=== PATIENT | male | born 1985 | race Caucasian/White ===

== ENCOUNTER 2020-07-30 02:15 | Inpatient (IN) | payer MEDICARE, MEDICAID ==
[2020-07-30] MEDS ORDERED: Succinylcholine 200 MG/10 ml SYRINGE FS ONE (02:30)
[2020-07-30 02:39] LABS: Hemoglobin 16.5 g/dL (14.0-18.0); Mean Corpuscular HGB CONC 33.8 g/dL (32.0-36.0); Mean Corpuscular Hemoglobin 33.2 pg (27.0-31.0); Mean Corpuscular Volume 98.2 fL (78.0-98.0); Mean Platelet Volume 8.2 fL (7.4-10.4); Platelet Count 260 thou/uL (130-400); RBC Distribution Width 11.9 % (11.5-14.5); Red Blood Cell (RBC) Count 4.96 mill/uL (4.70-6.10); White Blood Cell (WBC) Count 10.6 thou/uL (4.8-10.8)
[2020-07-30] MEDS ORDERED: Propofol 1,000 MG/100 ML VIAL IV ONE (02:41)
[2020-07-30] MEDS ORDERED: Rocuronium Bromide 10 MG/ML (10ML VIAL) ONE (02:48)
[2020-07-30 02:58] LABS: Band 1 % (5-11); Eosinophils 2 % (0-10); Lymphocytes 57 % (21-51); MDiff Complete? YES; Monocytes 3 % (0-10); Neutrophil 35 % (42-75); Platelet Morphology Comment Appears Adequate; Reactive Lymphocytes 1 % (0-10)
[2020-07-30 03:07] LABS: Actual Bicarbonate (HCO3a) 17.3 mEq/L (22-28); Analyzer IN Cardio ER; Base Excess (BEa) -9.7 mEq/L (-2.0 to +3.0); CO2 Tension 41.7 mmHg (35.0-45.0); Hemoglobin (Hb) 17.7 g/dL (14.0-18.0); O2 Tension (PaO2), arterial 247.9 mmHg (80.0-100.0)
[2020-07-30 03:08] LABS: pH, Arterial 7.24 (7.35-7.45)
[2020-07-30 03:08] LABS: ALT (SGPT) 48 U/L (8-55); AST (SGOT) 37 U/L (5-34); Acetaminophen Less than 6.0 mcg/mL (10.0-30.0); Alcohol 110 mg/dL (Less than 10); Alkaline Phosphatase 118 U/L (40-110); Anion Gap 25 mmol/L (10-20); BUN (Urea Nitrogen) 10 mg/dL (8.9-20.6); Bilirubin, Total 0.2 mg/dL (0.2-1.2); CK (CPK) 136 U/L (30-200); Calc. Creatinine Clearance 0 mL/min (70-130); Carbon Dioxide 15 mmol/L (22-29); Chloride 100 mmol/L (98-107); Globulin 3.3 g/dL (2.4-3.5); Glucose 417 mg/dL (70-105); Potassium 4.6 mmol/L (3.5-5.1); Protein, Total 7.3 g/dL (6.0-8.3); Salicylate Less than 8.0 mg/dL (15.0-30.0); Sodium 135 mmol/L (136-145)
[2020-07-30 03:09] LABS: Puncture Site RRA
[2020-07-30 03:14] LABS: ALV-art Gradient 127.775 mmHg (0-20)
[2020-07-30 03:44] LABS: Bacteria/HPF None Seen HPF (None Seen); Bilirubin Negative (Negative); Blood, Urine Negative (Negative); Clarity Clear (Clear); Glucose, Urine (Dipstick) Greater than 1000 mg/dL (Negative); Ketone, Urine Negative (Negative); Leukocyte Negative Leu/uL (Negative); Nitrite Negative (Negative); Protein, Urine (Dipstick) 30 mg/dL (Neg-Trace); RBC/HPF 0-3 HPF (0-3); Squamous Epithelial 0-3 HPF (0-3); Urobilinogen Normal mg/dL (Less than 2); WBC/HPF 0-3 HPF (0-3); pH, Urine 5.5 (5.0-9.0)
[2020-07-30 03:51] LABS: Amphetamine Not Detected (NotDetected); Barbiturates Screen Not Detected (NotDetected); Benzodiazepine Screen Not Detected (NotDetected); Cocaine Metabolite Screen Not Detected (NotDetected); Medtox Control Line Valid? VALID (VALID); Medtox Reader # READER 4; Methadone Not Detected (NotDetected); Methamphetamine Not Detected (NotDetected); Opiate Screen Detected (NotDetected); Oxycodone Screen Not Detected (NotDetected); Phencyclidine (PCP) Not Detected (NotDetected); THC/Cannabinoid Screen Detected (NotDetected); Tricyclic Screen Not Detected (NotDetected)
[2020-07-30 04:00] LABS: SARS-CoV-2 NAA Rapid Test Not Detected (NotDetected)
[2020-07-30] MEDS ORDERED: Norepinephrine 8 MG/0.9% NS 250 ML ONE (04:21)
[2020-07-30] MEDS ORDERED: Acetaminophen 650 MG Suppository PR PRN (04:51)
[2020-07-30] MEDS ORDERED: Acetaminophen 325 MG TAB PO PRN (04:51)
[2020-07-30] MEDS ORDERED: Ondansetron PF 4 MG/2 ML Vial IVP PRN (04:51)
[2020-07-30] MEDS ORDERED: Dextrose 50% Abboject 50 ML SYRINGE SLOW IVP PRN (04:57)
[2020-07-30] MEDS ORDERED: Dextrose 5% in Water 1,000 ML IV PRN (04:57)
[2020-07-30] MEDS ORDERED: HumaLOG 300 UNITS/3 ML VIAL SC PRN (04:57)
[2020-07-30] MEDS ORDERED: Morphine 2 MG/ML VIAL SLOW IVP PRN (05:15)
[2020-07-30] MEDS ORDERED: Fentanyl BOLUS 250 ML IVPB PRN (05:15)
[2020-07-30] MEDS ORDERED: Propofol BOLUS 1,000 MG/100 ML VIAL IV PRN (05:15)
[2020-07-30] MEDS ORDERED: Fentanyl CADD 100 ML IV SCH (05:15)
[2020-07-30] MEDS ORDERED: DISCONTINUE PREVIOUS NARCOTIC PAIN MEDICATIONS AND BENZODIAZEPINES FS SCH (05:15)
[2020-07-30] MEDS: Multivitamins, Adult 10 ML, Folic Acid 1 MG in Dextrose 5 %-0.45 % NaCl 1,000 ML IV SCH (05:56)
[2020-07-30] MEDS ORDERED: Norepinephrine 8 MG/0.9% NS 250 ML IVPB SCH (06:00)
[2020-07-30 07:11] LABS: Lactic Acid 1.8 mmol/L (0.5-2.2)
[2020-07-30] MEDS: Vancomycin 1 GM in Premix Bag 1 BAG IVPB SCH ×2 (09:29→20:10)
[2020-07-30] MEDS: Cefepime 1 GM in Sodium Chloride 0.9% 100 ML IVPB SCH ×2 (09:29→20:21)
[2020-07-30] MEDS: Famotidine 20 MG TAB PO SCH ×2 (09:30→20:10)
[2020-07-30] MEDS ORDERED: Sodium Chloride 0.9% 500 ML IV SCH (10:30)
[2020-07-30] MEDS: Sodium Chloride 0.9% 1,000 ML IV SCH ×2 (10:46→16:57)
[2020-07-30] MEDS: Propofol 1,000 MG/100 ML VIAL IV PRN ×2 (10:47→17:51)
[2020-07-30] MEDS: Lorazepam 2 MG/ML VIAL SLOW IVP PRN ×4 (14:35→23:45)
[2020-07-31] MEDS: Propofol 1,000 MG/100 ML VIAL IV PRN ×3 (00:44→08:02)
[2020-07-31 03:57] LABS: #Eosinphils 0.2 thou/uL (0.0-0.7); #Lymphocytes 1.7 thou/uL (1.20-3.40); #Monocytes 0.5 thou/uL (0.11-0.59); #Neutrophils 6.2 thou/uL (1.40-6.50); %Basophils 0.4 % (0.0-1.0); %Eosinophils 2.7 % (0.0-10.0); %Lymphocytes 20.2 % (21.0-51.0); %Monocytes 5.4 % (0.0-10.0); %Neutrophils 71.3 % (42.0-75.0); Hemoglobin 12.4 g/dL (14.0-18.0); Mean Corpuscular HGB CONC 33.8 g/dL (32.0-36.0); Mean Corpuscular Hemoglobin 32.7 pg (27.0-31.0); Mean Corpuscular Volume 96.8 fL (78.0-98.0); Mean Platelet Volume 8.4 fL (7.4-10.4); Platelet Count 132 thou/uL (130-400); RBC Distribution Width 11.8 % (11.5-14.5); Red Blood Cell (RBC) Count 3.78 mill/uL (4.70-6.10); White Blood Cell (WBC) Count 8.6 thou/uL (4.8-10.8)
[2020-07-31 04:12] LABS: Albumin 2.7 g/dL (3.5-5.0)
[2020-07-31 04:13] LABS: Calcium 7.3 mg/dL (7.8-10.44); Chloride 112 mmol/L (98-107); Potassium 4.4 mmol/L (3.5-5.1); Sodium 137 mmol/L (136-145)
[2020-07-31 04:14] LABS: Globulin 2.7 g/dL (2.4-3.5); Glucose 85 mg/dL (70-105)
[2020-07-31 04:15] LABS: Carbon Dioxide 13 mmol/L (22-29)
[2020-07-31 04:16] LABS: Bilirubin, Total 0.5 mg/dL (0.2-1.2)
[2020-07-31 04:17] LABS: Alkaline Phosphatase 77 U/L (40-110)
[2020-07-31 04:18] LABS: BUN (Urea Nitrogen) 10 mg/dL (8.9-20.6)
[2020-07-31 04:19] LABS: AST (SGOT) 36 U/L (5-34)
[2020-07-31 04:20] LABS: ALT (SGPT) 31 U/L (8-55)
[2020-07-31 04:29] LABS: Calc. Creatinine Clearance 142 mL/min (70-130); Protein, Total 5.4 g/dL (6.0-8.3)
[2020-07-31 04:49] LABS: Anion Gap 16 mmol/L (10-20)
[2020-07-31] MEDS: Lorazepam 2 MG/ML VIAL SLOW IVP PRN ×2 (04:50→07:48)
[2020-07-31] MEDS: Multivitamins, Adult 10 ML, Folic Acid 1 MG in Dextrose 5 %-0.45 % NaCl 1,000 ML IV SCH (06:47)
[2020-07-31] MEDS: Cefepime 1 GM in Sodium Chloride 0.9% 100 ML IVPB SCH ×2 (07:46→22:34)
[2020-07-31] MEDS: Vancomycin 1 GM in Premix Bag 1 BAG IVPB SCH ×2 (07:48→19:55)
[2020-07-31] MEDS: Famotidine 20 MG TAB PO SCH ×2 (07:48→19:53)
[2020-07-31] MEDS: Enoxaparin Sodium 40 MG/0.4 ML SYRINGE SC SCH (07:48)
[2020-07-31] MEDS: Sodium Chloride 0.9% 1,000 ML IV SCH (07:56)
[2020-07-31 10:23] VITALS: BP 103/51
[2020-07-31] MEDS ORDERED: Haloperidol Lactate 5 MG/ML VIAL SLOW IVP SCH (10:45)
[2020-07-31] MEDS ORDERED: Ziprasidone 20 MG VIAL IM PRN (15:17)
[2020-07-31] MEDS ORDERED: Morphine 4 MG/ML VIAL SLOW IVP SCH (15:44)
[2020-07-31] MEDS: Morphine 4 MG/ML VIAL SLOW IVP PRN ×3 (19:53→23:47)
[2020-07-31 21:02] LABS: Vancomycin, Trough 5.4 ug/mL
[2020-08-01] MEDS: Sodium Chloride 0.9% 1,000 ML IV SCH (02:16)
[2020-08-01] MEDS: Morphine 4 MG/ML VIAL SLOW IVP PRN ×2 (03:18→06:14)
[2020-08-01 03:58] LABS: #Basophils 0.1 thou/uL (0.0-0.2); #Eosinphils 0.2 thou/uL (0.0-0.7); #Lymphocytes 2.1 thou/uL (1.20-3.40); #Monocytes 0.5 thou/uL (0.11-0.59); #Neutrophils 5.1 thou/uL (1.40-6.50); %Basophils 0.7 % (0.0-1.0); %Eosinophils 3.1 % (0.0-10.0); %Lymphocytes 26.2 % (21.0-51.0); %Monocytes 6.6 % (0.0-10.0); %Neutrophils 63.4 % (42.0-75.0); Hemoglobin 13.5 g/dL (14.0-18.0); Mean Corpuscular HGB CONC 35.3 g/dL (32.0-36.0); Mean Corpuscular Hemoglobin 33.6 pg (27.0-31.0); Mean Corpuscular Volume 95.1 fL (78.0-98.0); Mean Platelet Volume 8.2 fL (7.4-10.4); Platelet Count 138 thou/uL (130-400); RBC Distribution Width 11.5 % (11.5-14.5); Red Blood Cell (RBC) Count 4.01 mill/uL (4.70-6.10)
[2020-08-01] MEDS ORDERED: Vancomycin 1 GM in Premix Bag 1 BAG IVPB SCH (04:00)
[2020-08-01 04:28] LABS: ALT (SGPT) 30 U/L (8-55); AST (SGOT) 26 U/L (5-34); Albumin 3.3 g/dL (3.5-5.0); Alkaline Phosphatase 88 U/L (40-110); Anion Gap 16 mmol/L (10-20); BUN (Urea Nitrogen) 4 mg/dL (8.9-20.6); Calc. Creatinine Clearance 147 mL/min (70-130); Calcium 8.1 mg/dL (7.8-10.44); Carbon Dioxide 22 mmol/L (22-29); Chloride 107 mmol/L (98-107); Glucose 89 mg/dL (70-105); Potassium 3.9 mmol/L (3.5-5.1); Protein, Total 6.3 g/dL (6.0-8.3); Sodium 141 mmol/L (136-145)
[2020-08-01] MEDS: Multivitamins, Adult 10 ML, Folic Acid 1 MG in Dextrose 5 %-0.45 % NaCl 1,000 ML IV SCH (04:35)
[2020-08-01 04:55] VITALS: BMI 25.7
[2020-08-01 07:21] VITALS: TEMP 98.5
[2020-08-01] MEDS: Cefepime 1 GM in Sodium Chloride 0.9% 100 ML IVPB SCH (09:06)
[2020-08-01] MEDS: Enoxaparin Sodium 40 MG/0.4 ML SYRINGE SC SCH (09:07)
[2020-08-01] MEDS: Famotidine 20 MG TAB PO SCH (09:07)
== END 2020-08-01 14:50 | disposition home or self-care (01) | DRG 871 ==
LOC: EDBD 02:15 → ERS 02:15 → CCU 02:31
PROVIDERS: ADMIT Internal Medicine; ATTEND Internal Medicine
PROC: 0BH17EZ Insertion of Endotracheal Airway into Trachea, Via Natural or Artificial Opening (ICD-10-PCS; principal; 2020-07-30)
PROC: 5A1935Z Respiratory Ventilation, Less than 24 Consecutive Hours (ICD-10-PCS; 2020-07-30)
DX: A41.9 Sepsis, unspecified organism (principal); J96.01 Acute respiratory failure with hypoxia; G92 Toxic encephalopathy; J69.0 Pneumonitis due to inhalation of food and vomit; N17.9 Acute kidney failure, unspecified; E87.2 Acidosis; F31.9 Bipolar disorder, unspecified; T40.2X1A Poisoning by other opioids, accidental (unintentional), initial encounter; G89.29 Other chronic pain; M54.9 Dorsalgia, unspecified; F11.10 Opioid abuse, uncomplicated; F39 Unspecified mood [affective] disorder; R73.9 Hyperglycemia, unspecified; F10.10 Alcohol abuse, uncomplicated; Z20.822 Contact with and (suspected) exposure to COVID-19
CPT/HCPCS: 31500; 36415; 36416; 36600; 51702; 71045; 80053; 80202; 80306; 80307; 81003; 81015; 82010; 82550; 82805; 83036; 83605; 85025; 87040; 93005; 93306; 94002; 94003; 94640; 94760; 96365; 96366; 96375; 99292; J0692; J1630; J1650; J2060; J2250; J2270; J2405; J2704; J3370; J3411; J3490; J7042; J7620; U0002

== ENCOUNTER 2021-08-04 01:25 | Emergency (ER) | payer MEDICARE, MEDICAID ==
[2021-08-04 02:15] LABS: #Basophils 0.1 thou/uL (0.0-0.2); #Lymphocytes 2.9 thou/uL (1.20-3.40); #Monocytes 0.7 thou/uL (0.11-0.59); %Basophils 1.3 % (0.0-1.0); %Eosinophils 0.5 % (0.0-10.0); %Lymphocytes 37.2 % (21.0-51.0); %Monocytes 9.2 % (0.0-10.0); %Neutrophils 51.7 % (42.0-75.0); Hemoglobin 15.6 g/dL (14.0-18.0); Mean Corpuscular HGB CONC 34.8 g/dL (32.0-36.0); Mean Corpuscular Hemoglobin 34.3 pg (27.0-31.0); Mean Corpuscular Volume 98.7 fL (78.0-98.0); Mean Platelet Volume 7.2 fL (7.4-10.4); Platelet Count 217 thou/uL (130-400); RBC Distribution Width 11.8 % (11.5-14.5); Red Blood Cell (RBC) Count 4.54 mill/uL (4.70-6.10); White Blood Cell (WBC) Count 7.7 thou/uL (4.8-10.8)
[2021-08-04 02:15] LABS: Bilirubin Negative (Negative); Blood, Urine Negative (Negative); Clarity Clear (Clear); Glucose, Urine (Dipstick) Normal (Negative); Ketone, Urine Negative (Negative); Leukocyte Negative Leu/uL (Negative); Nitrite Negative (Negative); Protein, Urine (Dipstick) Negative (Neg-Trace); Specific Gravity, Urine 1.002 (1.002-1.036); Urobilinogen Normal mg/dL (Less than 2)
[2021-08-04 02:23] LABS: Amphetamine Not Detected (NotDetected); Barbiturates Screen Not Detected (NotDetected); Benzodiazepine Screen Not Detected (NotDetected); Cocaine Metabolite Screen Not Detected (NotDetected); Methadone Not Detected (NotDetected); Methamphetamine Not Detected (NotDetected); Opiate Screen Not Detected (NotDetected); Oxycodone Screen Not Detected (NotDetected); Phencyclidine (PCP) Not Detected (NotDetected); THC/Cannabinoid Screen Detected (NotDetected); Tricyclic Screen Not Detected (NotDetected)
[2021-08-04 02:36] LABS: Acetaminophen Less than 10.0 mcg/mL (10.0-30.0); Alcohol 356 mg/dL (Less than 10); Salicylate Less than 8.0 mg/dL (15.0-30.0)
[2021-08-04 02:37] LABS: ALT (SGPT) 90 U/L (8-55); AST (SGOT) 64 U/L (5-34); Albumin 4.3 g/dL (3.5-5.0); Alcohol 357 mg/dL (Less than 10); Alkaline Phosphatase 96 U/L (40-110); Anion Gap 13 mmol/L (10-20); BUN (Urea Nitrogen) 6 mg/dL (8.9-20.6); Bilirubin, Total 0.6 mg/dL (0.2-1.2); Calc. Creatinine Clearance 0 mL/min (70-130); Calcium 8.8 mg/dL (7.8-10.44); Carbon Dioxide 23 mmol/L (22-29); Chloride 99 mmol/L (98-107); Globulin 3.1 g/dL (2.4-3.5); Glucose 108 mg/dL (70-105); Potassium 3.1 mmol/L (3.5-5.1); Protein, Total 7.4 g/dL (6.0-8.3); Sodium 132 mmol/L (136-145)
[2021-08-04] MEDS ORDERED: Ziprasidone 20 MG CAP ONE (07:41)
[2021-08-04] MEDS ORDERED: hydrOXYzine Pamoate 25 mg Capsule PO PRN (08:33)
[2021-08-04] MEDS ORDERED: traZODone HCl 50 MG TAB PO PRN (08:34)
[2021-08-04] MEDS ORDERED: Acetaminophen 325 MG TAB PO PRN (08:34)
[2021-08-04] MEDS ORDERED: Ibuprofen 600 MG TAB PO PRN (08:35)
[2021-08-04] MEDS ORDERED: Thiamine HCl 200 MG/2 ML VIAL IM SCH (08:45)
[2021-08-04] MEDS ORDERED: Gabapentin 300 MG CAP PO SCH (09:00)
[2021-08-04] MEDS ORDERED: Ziprasidone 20 MG CAP PO SCH (09:00)
[2021-08-04] MEDS ORDERED: Nicotine 14 MG PATCH TOP SCH (09:00)
[2021-08-04] MEDS ORDERED: Nicotine 14 MG PATCH ONE (09:23)
[2021-08-04] MEDS ORDERED: hydrOXYzine Pamoate 25 mg Capsule ONE (15:11)
[2021-08-05] MEDS ORDERED: Potassium Chloride 20 MEQ TAB ONE (09:35)
[2021-08-05 10:44] LABS: Anion Gap 13 mmol/L (10-20); BUN (Urea Nitrogen) 9 mg/dL (8.9-20.6); Calc. Creatinine Clearance 0 mL/min (70-130); Calcium 9.9 mg/dL (7.8-10.44); Carbon Dioxide 28 mmol/L (22-29); Chloride 101 mmol/L (98-107); Glucose 98 mg/dL (70-105); Potassium 4.4 mmol/L (3.5-5.1); Sodium 138 mmol/L (136-145)
[2021-08-05 11:18] LABS: SARS-CoV-2 NAA Rapid Test Not Detected (NotDetected)
[2021-08-05] MEDS ORDERED: Ibuprofen 200 MG TAB ONE (12:14)
== END 2021-08-05 16:30 | disposition short-term general hospital (02) ==
LOC: ERS 01:25
DX: R45.851 Suicidal ideations (principal); F10.129 Alcohol abuse with intoxication, unspecified; R00.0 Tachycardia, unspecified; Y90.8 Blood alcohol level of 240 mg/100 ml or more; Z20.822 Contact with and (suspected) exposure to COVID-19; Z79.899 Other long term (current) drug therapy
CPT/HCPCS: 73080; 80048; 80306; 80307 ×2; 81003; 93005; U0002; 36415; 80053; 84443; 85025; 96372; J3411; Q0177

== ENCOUNTER 2024-03-23 09:26 | Emergency (ER) | payer OTHER ==
[2024-03-23] MEDS ORDERED: Gabapentin 400 MG CAP ONE (09:48)
== END 2024-03-23 09:55 | disposition home or self-care (01) ==
LOC: ERS 09:26
DX: F41.9 Anxiety disorder, unspecified (principal); Z76.0 Encounter for issue of repeat prescription
CPT/HCPCS: 99282

== ENCOUNTER 2024-03-26 01:06 | Inpatient (IN) | payer OTHER ==
[2024-03-26] MEDS ORDERED: Ondansetron PF 4 MG/2 ML Vial ONE (01:26)
[2024-03-26 01:33] LABS: Hematocrit 47.4 % (42.0-52.0); Hemoglobin 16.8 g/dL (14.0-18.0); Mean Corpuscular HGB CONC 35.4 g/dL (32.0-36.0); Mean Corpuscular Hemoglobin 31.7 pg (27.0-31.0); Mean Corpuscular Volume 89.4 fL (78.0-98.0); Mean Platelet Volume 9.5 fL (7.4-10.4); Platelet Count 360 10x3/uL (130-400)
[2024-03-26 01:49] LABS: Acetaminophen Less than 10 mcg/mL (Less than 10); Alcohol 414.7 mg/dL (Less than 10); Salicylate Less than 8.0 mg/dL (Less than 8.0)
[2024-03-26 01:59] LABS: Lymphocytes 27 % (21-51); Monocytes 4 % (0-10); Neutrophil 66 % (42-75); Platelet Adequacy Comment Platelets Normal; RBC Morphology Within Normal Limits; Reactive Lymphocytes 2 % (0-10)
[2024-03-26 02:01] LABS: CK (CPK) 6154 U/L (30-200)
[2024-03-26 02:33] LABS: ALT (SGPT) 55 U/L (8-55); AST (SGOT) 130 U/L (5-34); Albumin 4.2 g/dL (3.5-5.0); Alkaline Phosphatase 102 U/L (40-110); Anion Gap 21 mmol/L (10-20); BUN (Urea Nitrogen) 13 mg/dL (8.9-20.6); Bilirubin, Total 0.4 mg/dL (0.2-1.2); Calc. Creatinine Clearance 0 mL/min (70-130); Calcium 8.5 mg/dL (7.8-10.44); Carbon Dioxide 18 mmol/L (22-29); Chloride 99 mmol/L (98-107); Estimated GFR 86; Globulin 3.7 g/dL (2.4-3.5); Glucose 107 mg/dL (70-105); Potassium 4.2 mmol/L (3.5-5.1); Protein, Total 7.9 g/dL (6.0-8.3); Sodium 134 mmol/L (136-145)
[2024-03-26 02:57] LABS: Amphetamine Detected (NotDetected); Barbiturates Screen Not Detected (NotDetected); Benzodiazepine Screen Not Detected (NotDetected); Cocaine Metabolite Screen Not Detected (NotDetected); Methadone Not Detected (NotDetected); Methamphetamine Detected (NotDetected); Opiate Screen Not Detected (NotDetected); Oxycodone Screen Not Detected (NotDetected); Phencyclidine (PCP) Not Detected (NotDetected); THC/Cannabinoid Screen Detected (NotDetected); Tricyclic Screen Not Detected (NotDetected)
[2024-03-26 03:11] LABS: Bacteria/HPF None Seen HPF (None Seen); Bilirubin Negative (Negative); Blood, Urine 3+ (Negative); CAUTI Indications for Culture Alt mental st,lethar; Clarity Clear (Clear); Glucose, Urine (Dipstick) Normal (Negative); Ketone, Urine Negative (Negative); Leukocyte Negative Leu/uL (Negative); Nitrite Negative (Negative); Protein, Urine (Dipstick) 50 mg/dL (Neg-Trace); RBC/HPF 0-3 HPF (0-3); Specific Gravity, Urine 1.003 (1.002-1.036); Squamous Epithelial 0-3 HPF (0-3); Urobilinogen Normal mg/dL (Less than 2); WBC/HPF 0-3 HPF (0-3); pH, Urine 5.5 (5.0-9.0)
[2024-03-26 03:13] LABS: Urine Culture Reflex No No
[2024-03-26] MEDS ORDERED: Sodium Chloride 0.9% 100 ML ONE (03:13)
[2024-03-26] MEDS ORDERED: Cefepime 2 GM VIAL ONE (03:13)
[2024-03-26] MEDS ORDERED: Nicotine 14 MG PATCH ONE (04:21)
[2024-03-26] MEDS: Vancomycin (BATCH) 1.75 GM in Premix 1 BAG IVPB SCH (04:51)
[2024-03-26 04:57] VITALS: BMI 21.7
[2024-03-26] MEDS ORDERED: Ondansetron PF 4 MG/2 ML Vial IVP PRN (05:23)
[2024-03-26] MEDS ORDERED: Lorazepam 2 MG/ML VIAL IM PRN (05:35)
[2024-03-26] MEDS ORDERED: Gabapentin 300 MG CAP ONE ×2 (05:36→09:59)
[2024-03-26] MEDS ORDERED: Electrolyte Replacement Protocol 1 EACH FS PRN (05:45)
[2024-03-26] MEDS: Gabapentin 300 MG CAP PO SCH ×3 (05:58→16:08)
[2024-03-26 06:23] LABS: #Basophils 0.06 10x3/uL (0.0-0.2); %Basophils 0.4 % (0.0-1.0); %Eosinophils 0.2 % (0.0-10.0); %Lymphocytes 26.9 % (21.0-51.0); %Monocytes 7.7 % (0.0-10.0); %Neutrophils 64.5 % (42.0-75.0); Hematocrit 43.3 % (42.0-52.0); Hemoglobin 15.4 g/dL (14.0-18.0); Mean Corpuscular HGB CONC 35.6 g/dL (32.0-36.0); Mean Corpuscular Hemoglobin 31.6 pg (27.0-31.0); Mean Corpuscular Volume 88.9 fL (78.0-98.0); Mean Platelet Volume 9.6 fL (7.4-10.4); Platelet Count 318 10x3/uL (130-400); Red Blood Cell (RBC) Count 4.87 mill/uL (4.70-6.10)
[2024-03-26 06:24] LABS: Actual Bicarbonate (HCO3v) 16.9 mEq/L (22-28); Analyzer IN Cardio ER; Base Excess -7.3 mEq/L (-2.0 to +3.0); Calcium, Ionized (venous) 1.05 mmol/L (1.16-1.32); Chloride (VBG) 103 mmol/L (98-106); Hematocrit-VBG 47 % (42.0-52.0); Hemoglobin (Hb) 15.9 g/dL (13.2-17.3); Potassium (VBG) 4.18 mmol/L (3.70-5.30); Sodium 141 mmol/L (133-146); pH (venous) 7.353 (7.32-7.43)
[2024-03-26 06:33] LABS: Lactic Acid 3.14 mmol/L (0.5-2.2)
[2024-03-26] MEDS ORDERED: Lorazepam 1 MG TAB ONE ×2 (06:37→11:42)
[2024-03-26] MEDS ORDERED: Thiamine HCl 200 MG/2 ML VIAL ONE (06:37)
[2024-03-26 06:48] LABS: CK (CPK) 6601 U/L (30-200)
[2024-03-26] MEDS: Thiamine HCl 200 MG/2 ML VIAL SLOW IVP SCH (06:54)
[2024-03-26] MEDS: Lorazepam 1 MG TAB PO PRN ×2 (06:54→11:46)
[2024-03-26] MEDS: Sodium Chloride 0.9% 1,000 ML IV SCH (06:54)
[2024-03-26 07:06] LABS: Anion Gap 15 mmol/L (10-20); BUN (Urea Nitrogen) 11 mg/dL (8.9-20.6); Calc. Creatinine Clearance 110 mL/min (70-130); Calcium 7.4 mg/dL (7.8-10.44); Carbon Dioxide 19 mmol/L (22-29); Chloride 104 mmol/L (98-107); Estimated GFR 113; Glucose 151 mg/dL (70-105); Potassium 4.1 mmol/L (3.5-5.1); Sodium 134 mmol/L (136-145)
[2024-03-26] MEDS ORDERED: Electrolyte Replacement Protocol FS PRN (07:30)
[2024-03-26] MEDS: Multivitamins, Adult 10 ML, Thiamine HCl 100 MG, Folic Acid 1 MG in Dextrose 5 %-0.45 %... IV SCH (08:52)
[2024-03-26] MEDS ORDERED: Folic Acid 1 MG TAB ONE (08:55)
[2024-03-26] MEDS: Folic Acid 1 MG TAB PO SCH (09:52)
[2024-03-26] MEDS ORDERED: Multivit, Therapeutic 1 TAB ONE (09:54)
[2024-03-26] MEDS ORDERED: Diazepam 5 MG TAB ONE (09:59)
[2024-03-26] MEDS: Diazepam 5 MG TAB PO SCH (10:08)
[2024-03-26] MEDS: Multivit, Therapeutic 1 TAB PO SCH (10:10)
[2024-03-26] MEDS: Lactated Ringer's 1,000 ML IV SCH (11:36)
[2024-03-26] MEDS: Acetaminophen 325 MG TAB PO PRN (14:21)
[2024-03-26 16:59] LABS: Albumin 3.1 g/dL (3.5-5.0); Anion Gap 9 mmol/L (10-20); BUN (Urea Nitrogen) 10 mg/dL (8.9-20.6); BUN/Creatinine Ratio 13.51; Calc. Creatinine Clearance 132 mL/min (70-130); Calcium 8.1 mg/dL (7.8-10.44); Carbon Dioxide 25 mmol/L (22-29); Chloride 104 mmol/L (98-107); Estimated GFR 120; Glucose 120 mg/dL (70-105); Phosphorus 1.4 mg/dL (2.3-4.7); Potassium 3.9 mmol/L (3.5-5.1); Sodium 134 mmol/L (136-145)
[2024-03-26 17:05] LABS: CK (CPK) 4878 U/L (30-200)
[2024-03-26] MEDS ORDERED: Electrolyte Replacement Protocol FS SCH (17:30)
[2024-03-26] MEDS: PHOS-NAK 1 PKT PACK PO SCH (18:29)
[2024-03-26] MEDS ORDERED: Gabapentin 300 MG CAP PO SCH (21:00)
[2024-03-27 04:48] LABS: #Basophils 0.04 10x3/uL (0.0-0.2); %Basophils 0.5 % (0.0-1.0); %Eosinophils 1.9 % (0.0-10.0); %Lymphocytes 33.8 % (21.0-51.0); %Monocytes 9.3 % (0.0-10.0); %Neutrophils 54.3 % (42.0-75.0); Hematocrit 37.5 % (42.0-52.0); Hemoglobin 12.9 g/dL (14.0-18.0); Mean Corpuscular HGB CONC 34.4 g/dL (32.0-36.0); Mean Corpuscular Hemoglobin 31.5 pg (27.0-31.0); Mean Corpuscular Volume 91.5 fL (78.0-98.0); Platelet Count 194 10x3/uL (130-400); RBC Distribution Width 13.1 % (11.5-14.5)
[2024-03-27 05:12] LABS: Anion Gap 12 mmol/L (10-20); BUN (Urea Nitrogen) 10 mg/dL (8.9-20.6); CK (CPK) 3404 U/L (30-200); Calc. Creatinine Clearance 127 mL/min (70-130); Calcium 8.2 mg/dL (7.8-10.44); Carbon Dioxide 25 mmol/L (22-29); Chloride 107 mmol/L (98-107); Estimated GFR 118; Glucose 114 mg/dL (70-105); Potassium 3.8 mmol/L (3.5-5.1); Sodium 140 mmol/L (136-145)
[2024-03-27] MEDS: Lactated Ringer's 1,000 ML IV SCH (05:31)
[2024-03-27] MEDS: FLU (Fluarix Triv) TS24-25(6MOS UP)/PF 45 MCG/0.5 ML Syringe IM ONE (09:05)
[2024-03-27] MEDS: Lorazepam 1 MG TAB PO PRN (11:56)
[2024-03-28] MEDS: Melatonin 3 MG TAB PO PRN (01:45)
[2024-03-28 04:41] LABS: #Basophils Less than 0.03 10x3/uL (0.0-0.2); %Basophils 0.3 % (0.0-1.0); %Eosinophils 2.7 % (0.0-10.0); %Lymphocytes 32.4 % (21.0-51.0); %Neutrophils 57.5 % (42.0-75.0); Hematocrit 36.6 % (42.0-52.0); Hemoglobin 12.7 g/dL (14.0-18.0); Mean Corpuscular HGB CONC 34.7 g/dL (32.0-36.0); Mean Corpuscular Hemoglobin 31.9 pg (27.0-31.0); Mean Platelet Volume 10.7 fL (7.4-10.4); Platelet Count 197 10x3/uL (130-400); RBC Distribution Width 12.8 % (11.5-14.5); Red Blood Cell (RBC) Count 3.98 mill/uL (4.70-6.10)
[2024-03-28 05:43] LABS: Anion Gap 15 mmol/L (10-20); BUN (Urea Nitrogen) 6 mg/dL (8.9-20.6); CK (CPK) 2113 U/L (30-200); Calc. Creatinine Clearance 148 mL/min (70-130); Calcium 8.6 mg/dL (7.8-10.44); Carbon Dioxide 21 mmol/L (22-29); Chloride 110 mmol/L (98-107); Estimated GFR 124; Glucose 100 mg/dL (70-105); Potassium 3.7 mmol/L (3.5-5.1); Sodium 142 mmol/L (136-145)
[2024-03-28 06:23] LABS: Phosphorus 3.4 mg/dL (2.3-4.7)
[2024-03-28] MEDS: Lorazepam 1 MG TAB PO PRN (10:49)
[2024-03-29 04:03] LABS: #Basophils 0.03 10x3/uL (0.0-0.2); %Basophils 0.4 % (0.0-1.0); %Eosinophils 3.7 % (0.0-10.0); %Lymphocytes 41.9 % (21.0-51.0); %Monocytes 6.3 % (0.0-10.0); %Neutrophils 47.4 % (42.0-75.0); Hematocrit 38.7 % (42.0-52.0); Hemoglobin 13.4 g/dL (14.0-18.0); Mean Corpuscular HGB CONC 34.6 g/dL (32.0-36.0); Mean Corpuscular Hemoglobin 31.4 pg (27.0-31.0); Mean Corpuscular Volume 90.6 fL (78.0-98.0); Mean Platelet Volume 10.3 fL (7.4-10.4); Platelet Count 201 10x3/uL (130-400); Red Blood Cell (RBC) Count 4.27 mill/uL (4.70-6.10)
[2024-03-29 04:21] LABS: Anion Gap 13 mmol/L (10-20); BUN (Urea Nitrogen) 9 mg/dL (8.9-20.6); Calc. Creatinine Clearance 140 mL/min (70-130); Calcium 8.8 mg/dL (7.8-10.44); Carbon Dioxide 23 mmol/L (22-29); Chloride 110 mmol/L (98-107); Estimated GFR 122; Glucose 99 mg/dL (70-105); Potassium 3.6 mmol/L (3.5-5.1); Sodium 142 mmol/L (136-145)
[2024-03-29] MEDS: Thiamine 100 MG TAB PO SCH (06:00)
[2024-03-29] MEDS: Lorazepam 0.5 MG TAB PO PRN (10:04)
[2024-03-29] MEDS: Sodium Chloride 0.9% 1,000 ML IV SCH (16:44)
[2024-03-30 16:48] VITALS: BP 125/76; TEMP 98.7
== END 2024-03-30 16:40 | DRG 558 ==
LOC: ERS 01:06 → ERHOLD 04:07 → OBSVTOIN 08:41 → 2NO 13:23
PROVIDERS: ADMIT Internal Medicine; ATTEND Internal Medicine
DX: M62.82 Rhabdomyolysis (principal); E87.20 Acidosis, unspecified; N17.9 Acute kidney failure, unspecified; D72.829 Elevated white blood cell count, unspecified; F19.10 Other psychoactive substance abuse, uncomplicated; F41.9 Anxiety disorder, unspecified; Z98.890 Other specified postprocedural states; F17.210 Nicotine dependence, cigarettes, uncomplicated; Z79.899 Other long term (current) drug therapy; F10.229 Alcohol dependence with intoxication, unspecified; E86.0 Dehydration; S00.83XA Contusion of other part of head, initial encounter; W18.30XA Fall on same level, unspecified, initial encounter; F31.9 Bipolar disorder, unspecified; Z76.0 Encounter for issue of repeat prescription
CPT/HCPCS: 36415; 70450; 70486; 71045; 80048; 80053; 80306; 80307; 81001; 82550; 82805; 83605; 84100; 85025; 87040; 87086; 93005; 94760; 96374; 96375; 99282; G0378; J0692; J2405; J3370; J3411; J7030; J7042; J7120